=== PATIENT | female | born 1955 | race African-American/Black ===

== ENCOUNTER 2019-12-22 02:04 | Emergency (ER) | payer OTHER ==
[~2019-12-22] VITALS: Ht 160 cm; Wt 55.0 kg
[2019-12-22 04:18] LABS: HEMATOCRIT. 34.1 % (36.0-48.0); HEMOGLOBIN. 10.9 g/dL (12.0-16.0); MEAN PLATELET VOLUME 8.2 fl (7.4-10.4); PLATELET 391 x1000/uL (130-400); RED BLOOD CELL COUNT 3.74 mill/uL (4.2-5.4); RED CELL DISTRIBUTION WIDTH 17.7 % (11.6-14.6)
[2019-12-22 04:25] LABS: CHLORIDE 97 mEq/L (98-107)
[2019-12-22] MEDS ORDERED: HYDROCODONE/ACETAMINOPHEN 5/325MG TABLET PO ONE (04:30)
[2019-12-22 05:03] LABS: PLATELET ESTIMATE NORMAL
[2019-12-22 08:37] VITALS: BP 137/68
== END 2019-12-22 09:04 | disposition short-term general hospital (02) ==
LOC: ER 02:04
DX: R53.1 Weakness (principal); R41.82 Altered mental status, unspecified; Z85.3 Personal history of malignant neoplasm of breast; Z88.3 Allergy status to other anti-infective agents; Z85.89 Personal history of malignant neoplasm of other organs and systems
CPT/HCPCS: 36415; 71045; 80053; 82962; 83880; 84484; 85025; 93005; 99285